=== PATIENT | female | born 1980 | race Caucasian/White ===

== ENCOUNTER 2017-08-28 09:19 | Emergency (ER) | payer BC ==
[2017-08-28 09:33] VITALS: BP 129/90
--- NOTE | 2017-08-28 10:15 | RAD ---
INDICATION: Bilateral ankle injury. TECHNIQUE: 3 views of both ankles were obtained. FINDINGS: There is diffuse soft tissue swelling present in both ankles. No fracture is seen in the right ankle. There is an oblique nondisplaced fracture of the distal fibula of the left ankle involving the distal diaphysis and metaphysis. Joint spaces appear maintained. IMPRESSION: 1. SOFT TISSUE SWELLING IN BOTH ANKLES. 2. OBLIQUE NONDISPLACED FRACTURE OF THE DISTAL FIBULA OF THE LEFT ANKLE.
--- NOTE | 2017-08-28 10:53 | UC ---
Lower Extremity/Ankle HPI - HPI Summary HPI Summary: Patient is a 37-year-old female presenting to the ED with chief complaint of bilateral ankle pain after she sustained an injury from jumping from her porch 4 days ago. She endorses worsening pain to the left lateral ankle. She endorses swelling and ecchymosis to the left lateral side of the left ankle and swelling to the right ankle without ecchymosis. She has been ambulating, but with pain. She attempted to clench work today but was unable to walk for long distances due to pain. Denies history of fractures. Denies ever injuring the ankle in the past. Denies any numbness or tingling. Denies temperature changes. Pulses +2 intact bilaterally. Vital signs are stable on arrival. - History of Current Complaint Chief Complaint: UCLowerExtremity Stated Complaint: ANKLE INJURY Time Seen by Provider: 08/28/17 10:16 Hx Obtained From: Patient Hx Last Menstrual Period: 08/22/17 ?: No Onset/Duration: Sudden Onset Severity Initially: Mild Severity Currently: Mild Pain Intensity: 7 Pain Scale Used: 0-10 Numeric Aggravating Factor(s): Standing, Ambulation Alleviating Factor(s): Rest Able to Bear Weight: No - Risk Factors Gout Risk Factors: Negative DVT Risk Factors: Negative Septic Arthritis Risk Factor: Negative - Allergies/Home Medications Allergies/Adverse Reactions: Allergies Allergy/AdvReac Type Severity Reaction Status Date / Time No Known Allergies Allergy Verified 08/28/17 09:33 PMH/Surg Hx/FS Hx/Imm Hx Previously Healthy: Yes - Surgical History Surgical History: Yes Surgery Procedure, Year, and Place: left kidney at 6 mos of age - Family History Known Family History: Positive: Unknown - Social History Occupation: Employed Full-time Lives: With Family Alcohol Use: Rare Substance Use Type: None Smoking Status (MU): Never Smoked Tobacco Household Exposure Type: Cigarettes Review of Systems Constitutional: Negative Skin: Negative Respiratory: Negative Cardiovascular: Negative Motor: Negative Neurovascular: Negative Musculoskeletal: Arthralgia - Bilateral ankles Neurological: Negative Psychological: Negative Is Patient Immunocompromised?: No All Other Systems Reviewed And Are Negative: Yes Physical Exam Triage Information Reviewed: Yes Appearance: Well-Appearing, Well-Nourished Vital Signs: Initial Vital Signs Temp 98 F 08/28/17 09:30 Pulse 85 08/28/17 09:30 Resp 16 08/28/17 09:30 BP 129/90 08/28/17 09:30 Pulse Ox 99 08/28/17 09:30 Vital Signs Reviewed: Yes Eye Exam: Normal Neck exam: Normal Neck: Positive: Supple, No Lymphadenopathy Respiratory Exam: Normal Respiratory: Positive: Chest non-tender, Lungs clear Cardiovascular Exam: Normal Cardiovascular: Positive: RRR Musculoskeletal: Positive: ROM Intact - Range of motion is intact, Strength Limited @ - Strength limited to the left ankle Neurological: Positive: Alert, Muscle Tone Normal Psychological Exam: Normal Psychological: Positive: Normal Response To Family Skin Exam: Normal Procedures - Splinting Hand-Made Type: orthoglass Splint: posterior walking Pre-Proc Neuro Vasc Exam: normal Post-Proc Neuro Vasc Exam: normal Lower Extremity Course/Dx - Course Course Of Treatment: During the course of treatment, the patient is evaluated for left ankle pain. X-rays obtained of both ankles.IMPRESSION: 1. SOFT TISSUE SWELLING IN BOTH ANKLES. 2. OBLIQUE NONDISPLACED FRACTURE OF THE DISTAL FIBULA OF THE LEFT ANKLE. Posterior walking splint placed using Ortho-Glass. Crutches given. No for were given. She will follow-up with Dr. Wells, orthopedics in his office next week. She is okay with this plan. She is given instructions for ice, elevation and ibuprofen. - Differential Dx/Diagnosis Differential Diagnosis/HQI/PQRI: Fracture (Closed), Sprain, Strain Provider Diagnoses: Oblique nondisplaced fibular fracture Discharge - Sign-Out/Discharge Documenting (check all that apply): Discharge/Admit/Transfer - Discharge Plan Condition: Stable Disposition: HOME Patient Education Materials: Ankle Fracture (ED) Forms: *Work Release Referrals: Irving Wells MD [Medical Doctor] - No Primary Care Phys,NOPCP [Primary Care Provider] - Additional Instructions: Non weight bearing until follow up with orthopedics! I have given you a note for work Elevation Ice Crutches - Billing Disposition and Condition Condition: STABLE Disposition: HOME
== END 2017-08-28 10:55 | disposition home or self-care (01) ==
LOC: UCEAST 09:19
DX: S82.832A Other fracture of upper and lower end of left fibula, initial encounter for closed fracture (principal); Y93.39 Activity, other involving climbing, rappelling and jumping off; Y93.9 Activity, unspecified; Y92.008 Other place in unspecified non-institutional (private) residence as the place of occurrence of the external cause; M79.89 Other specified soft tissue disorders
CPT/HCPCS: 99202; G0463